=== PATIENT | female | born 1945 | race Caucasian/White ===

== ENCOUNTER 2019-01-19 14:13 | Emergency (ER) | payer MEDICARE ==
[2019-01-19] MEDS ORDERED: LIDOCAINE HCL 2% 20ML ONE (15:14)
[2019-01-19] MEDS ORDERED: BUPIVACAINE/PF 0.5% 30ML VIAL ONE (15:16)
[2019-01-19] MEDS ORDERED: ACETAMINOPHEN-CODEINE 300/30MG TAB ONE (16:43)
== END 2019-01-19 17:08 | disposition home or self-care (01) ==
LOC: EDH 14:13
DX: S52.501A Unspecified fracture of the lower end of right radius, initial encounter for closed fracture (principal); S52.611A Displaced fracture of right ulna styloid process, initial encounter for closed fracture; Z98.890 Other specified postprocedural states; Z88.5 Allergy status to narcotic agent; W18.39XA Other fall on same level, initial encounter; Y93.89 Activity, other specified; Y92.89 Other specified places as the place of occurrence of the external cause; Y99.8 Other external cause status
CPT/HCPCS: 25605; 73090; 73110 ×2; 99284; J3490 ×2